=== PATIENT | male | born 2000 | race Caucasian/White ===

== ENCOUNTER 2025-08-01 14:31 | Emergency (ER) | payer OTHER, SELFPAY ==
[2025-08-01] VITALS (8 sets, daily range): BP systolic 123–162; BP diastolic 51–89; PULSE 61–86; RESP 15–25; TEMP 36.4–36.5; O2SAT 95–100; BMI 32.2
--- NOTE | ~2025-08-01 | CT_ITS ---
EXAMINATION: CT CERVICAL SPINE WITHOUT CONTRAST CLINICAL INFORMATION: Injury at work COMPARISON: None available. TECHNIQUE: Axial imaging. Sagittal and coronal reconstructions. This CT examination was performed using dose optimization techniques as appropriate, variously including the following: *Automated exposure control *Adjustment of mA and/or kV according to patient size (this includes techniques or standardized protocols for targeted exams where dose is matched to indication/reason for exam; i.e. extremities or head) *Use of iterative reconstruction technique FINDINGS: There is anatomic alignment of the vertebral bodies and posterior elements. Straightening of the cervical curvature. The atlantoaxial and atlantooccipital articulations are intact. Vertebral body heights are maintained. No evidence of acute fracture or traumatic subluxation. Disc spaces are maintained. The bony central canal is maintained. No prevertebral soft tissue swelling is seen. No suspicious findings are visualized thyroid gland. No suspicious findings in lung apices. CT/CT cervical spine wo IV con IMPRESSION: No CT evidence of acute cervical spine fracture or traumatic malalignment. Fleischner guidelines were followed. Electronically signed by: Earl Kurtz MD 08/01/2025 04:31 PM EDT
--- NOTE | ~2025-08-01 | CT_ITS ---
EXAMINATION: CT HEAD AND FACIAL BONES WITHOUT CONTRAST CLINICAL INFORMATION: Injury to head, face, well working. Struck with branch. COMPARISON: None TECHNIQUE: Contiguous axial imaging was performed from the skull base to vertex, as well as the maxillofacial bones/mandible without intravenous administration of contrast. Multiplanar reformatted imaging was constructed from the axial data set. This CT examination was performed using dose optimization techniques as appropriate, variously including the following: *Automated exposure control *Adjustment of mA and/or kV according to patient size (this includes techniques or standardized protocols for targeted exams where dose is matched to indication/reason for exam; i.e. extremities or head) *Use of iterative reconstruction technique CT HEAD: There is scattered subarachnoid hemorrhage present greater in the left hemisphere. There is a 7 mm left hemispheric subdural hematoma. There is minimal associated gyral flattening and mass effect without significant midline shift or ventricular effacement. There may be a developing subtle left frontal contusive injury. There is no definite additional cerebral edema or contusion. No CT evidence of acute territorial infarct. Ventricles, sulci, and cisterns are normal in size and configuration for patient age. No hydrocephalus. No significant white matter abnormalities. Normal pituitary. Globes and orbital contents image normally. Extracranial soft tissues demonstrate scalp soft tissue swelling and laceration over the vertex, right frontal region, and left temporal region. The calvarium and skull base are intact without fracture. CT MAXILLOFACIAL BONES: The mandible is intact without fracture. The TM joints are normally oriented. The nasal bones, nasal process, maxilla, orbits, zygomatic arches, pterygoid plates, and sphenoid bone are intact without fracture. No significant nasal septal deviation. Paranasal sinuses are normally pneumatized throughout. No paranasal sinus fractures. The mastoids and tympanic cavities are normally aerated. Soft tissues demonstrate left facial soft tissue swelling and induration. No hematoma or fluid collection. There are a few subcutaneous foci of gas in the left temporalis muscle suggesting penetrating injury/laceration. CT/CT facial bones wo IV con IMPRESSION: 1. There is mixed subarachnoid hemorrhage and a 7 mm left hemispheric subdural hematoma. No definite epidural hematoma. There appears to be a subtle developing left frontal lobe contusive injury. There is no midline shift or significant mass effect at this time. 2. No evidence of skull base or calvarial fracture. 3. No evidence of maxillofacial bone fracture. 4. There is scalp soft tissue swelling and laceration involving the right vertex and right frontal region. There is left facial soft tissue swelling and induration. Above findings discussed with Dr. Yates of the [facility] at 4:30 PM, 08/01/2025. Electronically signed by: Ford Maya MD 08/01/2025 04:38 PM EDT
--- NOTE | 2025-08-01 15:41 | ED.HEATRA ---
HPI - Head Injury General Chief complaint: Head Injury Stated complaint: NECK PAIN, STRUCK BY TREE +CORNELIO Time Seen by Provider: 08/01/25 15:12 Source: patient, family (Mother at bedside) and EMS Mode of arrival: EMS Limitations: no limitations History of Present Illness ED Provider: HPI Narrative: 24-year-old male works for [employer], apparently he was walking underneath lala and a branch fell and patient presented with LOC on the scene, he states he is able to recall that he was working underneath the equipment and did see a branch, then he could not really remember what happened, when he came to the manage was telling him that the ambulance is on the way. He is not on blood thinners, reports decreased hearing in the left ear, no visual field changes, paraspinal neck pain, at the time of my evaluation, patient has placed a collar over his chin stating that he can't tolerate it. Related Data Allergies Allergy/AdvReac Type Severity Reaction Status Date / Time No Known Allergies Allergy Verified 08/01/25 15:02 Review of Systems Constitutional: Constitutional: Reports as per [facility] Social History Social History Advance Directives: No Advance Directives Information Provided: Yes Physical Exam Exam: Exam: General: ?Appears of stated age with some facial and scalp bruising ? ?pupils equal reactive bilaterally, there is ecchymosis to the right infraorbital area, there was no blood in the nares, no blood in the ear canals, visual abbott and vision is intact, no tenderness or ecchymosis along the mastoids. I do not appreciate any lacerations as documented in triage at least on initial evaluation, he has right frontotemporal hematoma, there was no obvious dental injury, and examination of the frontal bones without any obvious LeFort ? Neck: No midline tenderness paraspinal tenderness present bilaterally ? ?CV: S1-S2 radial pulses +2 bilaterally ? ?Resp: ?No wheezing rales rhonchi no stridor moving air well, there was no chest wall deformity, no bruising ? Abd: ?Bowel sounds are present, no tenderness no rebound no rigidity, pelvis is stable ? ?MSK: FROM, strength 5/5 all extremities ? Skin: Bruising, abrasion to the forehead ? ?Neuro: ?Alert and oriented x3, moving upper and lower extremities symmetrically, no obvious facial asymmetry noted, cranial nerves 2-12 intact Vital Signs: Vital Signs: Last Vital Signs Temp 97.6 F 08/01/25 14:59 Pulse 70 08/01/25 16:19 Resp 22 H 08/01/25 16:19 BP 125/78 08/01/25 16:19 Pulse Ox 97 08/01/25 16:19 O2 Del Method Room Air 08/01/25 16:19 BMI result Body Mass Index 32.2 Medical Decision Making Medical Decision Making MDM Narrative: 3:46 PM 08/01/2025 (Dr. Behzad Yates): We will obtain imaging of the head and neck area, I was able to clear his collar, he was not really able to tolerate it, and all his pain seems to be very much paraspinal, he has no neurologic deficits, when he moves his neck he has no pain so I we will keep the collar off, traumatic brain injuries highest on my differential, there was no obvious injury to the eye, there was no evidence for a LeFort injuries, and there was no evidence for basilar skull fractures, no evidence for any trauma to the chest abdomen and pelvis his back or extremities Mom is at bedside 4:06 PM 08/01/2025 (Dr. Behzad Yates): On my review patient has traumatic brain injury, I have likely subdural hematoma there maybe a small epidural extension, patient updated, place an IV,Placed pt into [place] collar, and planning for transfer to [facility] 4:20 PM 08/01/2025 (Dr. Behzad Yates): I spoke with Dr. Jensen, he agrees there maybe a small epidural and subdural, patient is going to go to [facility] as a trauma consult Differential Diagnosis Differential Diagnoses: The differential diagnosis associated with the presentation includes (Head injury, neck injury, chest or back injury, eye injury, inner ear injury) Admission/Observation Consideration of admission/observation: Escalation of care including admission/observation considered Consult Healthcare Provider Management of the patient was discussed with: [employer] Driver ([facility] trauma) Lab Data [facility] Lab Attestation statement: I reviewed the patient's lab results. 08/01/25 16:18 08/01/25 16:18 Independent Interpretation I performed an independent interpretation of an: CT Scan (Epidural small, subdural extension) Radiology Impression Discussion of test interpretation with radiology: I have reviewed the radiologist's reading. Independent Historian Clinical information obtained from an independent historian. History obtained from or confirmed by: Parent and EMS Critical Care Time Critical Care Time Critical Care Time: Yes Total Critical Care Time: 60 Attestation: Time is exclusive of separately billable procedures. Time includes: direct patient care, patient reassessment, coordination of patient care, interpretation of data (laboratory data, pulse oximetry, arterial blood gases and chest xrays), review of patient's medical records, medical consultation and documentation of patient care. Procedures excluded from critical care time: central intravenous line placement and electrocardiography. Discharge Plan Discharge Clinical Impression: Traumatic epidural hematoma Qualifiers: Encounter type: initial encounter Loss of consciousness presence/duration: with LOC of 30 min or less Qualified Code(s): S06.4X1A - Epidural hemorrhage with loss of consciousness of 30 minutes or less, initial encounter Traumatic subdural hematoma Qualifiers: Encounter type: initial encounter Loss of consciousness presence/duration: with LOC of 30 min or less Qualified Code(s): S06.5X1A - Traumatic subdural hemorrhage with loss of consciousness of 30 minutes or less, initial encounter Patient Disposition: Xfer Other Transfer Details: [facility] Emergency Department Print Language: Faroese
[2025-08-01 16:23] LABS: MANUAL DIFF FLAG NO
[2025-08-01 16:26] LABS: Hematocrit 48.4 % (42.0-52.0); Hemoglobin 16.4 g/dl (14.0-18.0); Imm Gran Abs Auto 0.08 X10*3/uL (0.00-0.03); Imm Gran Pct Auto 0.4 % (0.0-0.4); Lymphocytes Absolute Auto 1.3 X10*3/uL (1.2-4.9); Mean Corpuscular HGB Conc 33.9 g/dl (31.0-36.0); Mean Corpuscular Hemoglobin 29.5 pg (27.0-33.0); Mean Corpuscular Volume 87.2 fL (80.0-98.0); NRBC Abs Auto 0.000 X10*3/uL (0.0-0.012); NRBC Pct Auto 0.0 /100WBC (0.0-0.2); Platelet Count 293 X10*3/uL (160-400); Red Blood Count 5.55 X10*6/uL (4.60-5.80); White Blood Count 18.8 X10*3/uL (4.8-10.8)
[2025-08-01 16:36] LABS: INTERNATIONAL NORM RATIO 1.1 (0.9-1.1); Prothrombin Time 12.7 SEC (10.9-12.4)
[2025-08-01 16:38] LABS: Partial Thromboplastin Time 27.6 SEC (26.7-34.1)
--- NOTE | 2025-08-01 16:41 | PC.NURSE ---
per MD, pt noted to have a +brain bleed. radiologist reading for scan not read yet. pt placed in [place] collar as he was unable to tolerate c-collar placed by EMS. pt tolerated transition well. pt changed into hospital attire. belongings obtained and provided to family who is bedside. pt positioned upright.. placed on the cardiac cath rn. vss and up to date. pt remains awake/alert/responsive. neuros intact. 20gIV to the left forearm. additional 18gIV placed to the right AC. labs obtained/sent to lab. medication/IVF infusing per provider order. effectiveness pending. on RA w/o difficulty - no sob/wob noted. respirations even/unlabored. pt pending transfer to [facility] at this time. plan of care ongoing. call yoo placed within reach.
[2025-08-01 16:42] LABS: Alanine Aminotransferase 29 U/L (0-40); Albumin Level 4.7 g/dL (3.5-5.0); Alkaline Phosphatase 68 U/L (39-117); Anion Gap 13 (12-20); Aspartate Amino Transferase 33 U/L (5-37); Blood Urea Nitrogen 12 mg/dL (9-16); Calcium 9.2 mg/dL (8.4-10.2); Carbon Dioxide 26 mmol/L (22-29); Chloride 106 mmol/L (96-108); Creatinine Clr Calc Pharmacy 145.0; Estimated Glomerular Filt Rate > 60; Potassium 3.8 mmol/L (3.3-5.1); Sodium 141 mmol/L (135-145); Total Protein 7.5 g/dL (6.5-8.0)
--- NOTE | 2025-08-01 17:26 | PC.NURSE ---
report given to Oz RN in the ED at [facility] at this time. patient leaving BLS per MD order. nothing infusing upon transfer.
--- OUTSIDE RECORDS SUMMARY | 2025-08-01 21:44 | XMS_ITS | Clinical Summary ---
Author Organization [facility] Address [address] [place], [place] [id number] Phone Care Team Providers Care Petrographer Name Role Phone Trey Fuentes MD Primary Care Provider [phone] Allergies No known active allergies Medications acetaminophen-c odeine (TYLENOL-CODEIN E #3) 300-30 mg per tablet Take 1 tablet by mouth every 6 (six) hours as needed. Active ACETAMINOPHEN (TYLENOL ORAL) 1 tab q 6-8 hrs Active Medication-Free Text Melatonin Active lisdexamfetamin e (VYVANSE) 40 MG capsule Take 1 capsule by mouth every morning. Active dextroamphetami ne-amphetamine (ADDERALL XR) 30 MG 24 hr capsule Take 30 mg by mouth. 8 Active Immunizations Immunization Administration Dates Next Due Tdap 05/22/2024 Social History Tobacco Use Types Packs/Day Years Used Date Smoking Tobacco: Never Assessed Education Answer Date Recorded Are you interested in more education? Not on martin e 02/05/2023 Are you concerned about learning? Not on file 02/05/2023 No 02/05/2023 No 02/05/2023 Digital Access Answer Date Recorded No 03/08/2023 No 03/08/2023 No 03/08/2023 Reliable internet access at home? Not on file 03/08/2023 Device with a working camera? Not on file Intimate Partner Violence Answer Date R ecorded Are you denied basic needs s uch as food, clothing, or medical care? No 05/22/2024 In the past 12 months have y ou been in a relationship with a person who hurts, threatens, or tries to control you? No 05/22/2024 Are you denied basic needs s uch as food, clothing, or medical care? No 05/22/2024 In the past 12 months have y ou been in a relationship with a person who hurts, threatens, or tries to control you? No 05/22/2024 Sex and Gender Information Value Date Recorded Sex Assigned at Male 09/24/2019 12:52 AM EST Legal Sex Male 8:45 PM EDT Gender Identity Male 09/24/2019 12:52 AM EST Sexual Orientation Straight 09/24/2019 12 :52 AM EST Last Filed Vital Signs Vital Sign Reading Time Taken Comments Blood Pressure 149/90 05/31/2024 8:56 AM EDT Pulse 90 05/31/2024 8:56 AM EDT Temperature 36.2 C (97.2 F) 05/31/2024 8:56 AM EDT Respiratory Rate 18 05/31/2024 8:56 AM EDT Oxygen Saturation 99% 05/31/2024 8:56 AM EDT Inhaled Oxygen Concentration - - Weight 104.3 kg (230 lb) 05/22/2024 7:06 AM EDT Height 170.2 cm (5' 7 ) 05/22/2024 7:06 AM EDT Body Mass Index 36.02 05/22/2024 7:06 AM EDT Plan of Treatment Health Maintenance Due Date Last Done Comments DEPRESSION SCREENING 2014 SMOKING Hx and SMOKELESS TOBACCO SCREENING 2015 HPV VACCINES (1 - Male 3-dose series) 2017 MENINGOCOCCAL VACCINES (B) (1 of 2 - Standard) 2018 HEPATITIS C SCREENING 2020 HIV ONE-TIME SCREENING (18-65 YEARS) 2020 INFLUENZA VACCINE (#1) 2025 , 07/06/2020, 08/19/2018, Additional history exists COVID-19 VACCINE (3 - 2024- season) 2025 06/29/2021, 06/01/2021 Adult Td,Tdap Booster 05/22/2034 05/22/2024, 013 MENINGOCOCCAL VACCINES (ACWY) Completed 06/14/2020 HEPATITIS A VACCINES Completed 08/06/2021, 06/14/20 20 HIB VACCINES Aged Out No longer eligi ble based on patient's age to complete this topic PNEUMOCOCCAL VACCINES (0-49 years) Aged Out No longer eligible based on patient's age to complete this topic Medical Devices Not on file Insurance [facility] Member Subscriber Plan / Payer (Ef fective 2018-Present) Name:Tonny Andrade Relation to Subscriber:Child Name:EDY ANDRADE Date of :1999 (Home) Address: [id number] [place] [id number] Payer ID:Not on file Type:[facility] Address: [address] [facility] Care Teams Petrographer Relationship Specialty Start Date End Date Trey Fuentes MD [address] [place] [address] [address] [place] [address] [email or web address] PCP - General 10/14/17 Additional Source Comments The information contained in this document represents components of the legal health record. It is not the complete legal health record.[facility]
--- OUTSIDE RECORDS SUMMARY | 2025-08-01 21:44 | XMS_ITS | Encounter Summary ---
Author Organization [facility] Address [address] [place] [address] Phone Care Team Providers Care Heavy Equipment Technician Name Role Phone Trey Fuentes MD Primary Care Provider [phone] Encounter Details Date Type Department Care Team (Late st Contact Info) Description 05/19/2017 Conversion Encounter [facility] - [address], [address] [place] [address] Trey Fuentes MD [address] [place] [address] Social History Tobacco Use Types Packs/Day Years Used Date Smoking Tobacco: Never Assessed Sex and Gender Information Value Date Recorded Sex Assigned at Male 09/18/2024 8:49 PM EST Legal Sex Male 10:15 AM EST Gender Identity Male 09/18/2024 8:49 PM EST Sexual Orientation Choose not to answer 09/27/20 24 12:57 PM EST documented as of this encounter Plan of Treatment Not on file documented as of this encounter Visit Diagnoses Not on filedocumented in this encounter Care Teams Heavy Equipment Technician Relationship Specialty Start Date End Date Trey Fuentes MD [address] [place] [address] PCP - General 12/01/16 documented as of this encounter
--- OUTSIDE RECORDS SUMMARY | 2025-08-01 21:44 | XMS_ITS | Clinical Summary ---
Author Organization [facility] Address [address] [place] [address] Phone Care Team Providers Care Cut Lace Machine Operator Name Role Phone Trey Fuentes MD Primary Care Provider [phone] Allergies No known active allergies Medications No known medications Active Problems Problem Noted Date Diagnosed Date Right wrist injury 10/11/2021 Overview (10/11/2021): Fell on ice 09/2021 -- possible nondisplaced fracture, has ortho follow-up High triglycerides 06/26/2020 Overview (06/26/2020): Noted at 19 year PE TG =226 BMI (body mass index), pediatric, 95-99% for age 0312/20/2017 Assessment & Plan (09/16/2020 3:25 PM EST): Recommend getting regular exercise daily Assessment & Plan (05/03/2020 9:09 AM EDT): Recommend regular exercise daily. Healthy diet discussed Assessment & Plan (03/16/2018 3:44 PM EDT): On better diet. Doing well. Assessment & Plan (12/20/2017 2:59 PM EDT): Discussed diet and exercise Return in 3 months for recheck If BMI still high, will check labs Acne 12/20/2017 Assessment & Plan (01/02/2019 3:08 PM EDT): Continue with OTC benzoyl peroxide wash daily Add tretinoin cream at night Return if not improving Assessment & Plan (03/16/2018 3:47 PM EDT): Will use otc 10% benzoyl peroxide wash Assessment & Plan (12/20/2017 3:00 PM EDT): No squeezing or picking Avoid touching acne Keep phone clean, change pillowcases and towels regularly, keep hair clean and off the face. Wash with mild soap (Dove, Cetaphil) or mild acne cleanser twice a day, using lukewarm water. Moisturize as needed with non-greasy (non comedogenic) unscented lotion or cream. Dry thoroughly before applying medicated creams or gels. Call if not improving in next 2 months and we can offer additional treatment Use benzoyl peroxide 5% wash, gel, lotion, or cream twice daily. Alternative is OTC salicylic acid wash Anxiety 10/31/2016 Overview (08/06/2021): Followed by Dr. Boyce a [facility], started on Lexapro 2015 Dr. Boyce stopped Lexapro 02/2018. Was seeing counselor at [facility] Not seeing therapist in 2019 No current concerns Assessment & Plan (01/02/2019 3:05 PM EDT): Continue follow-up with [facility] Assessment & Plan (03/16/2018 3:43 PM EDT): Doing well off Lexapro. Attention-deficit hyperactiv ity disorder, predominantly hyperactive type 10/21/2015 Overview (08/06/2021): ADHD: on Ritalin LA since at least 2009. Changed to Focalin XR 12/2010, increased to BID dosing 11/2011. Failed trials of Tenex (2010-ineffective), clonidine (2012-ineffective) and Vyvanse (2014-ineffective) Managed by Dr. Boyce at [facility], back to [facility] 04/2020 No longer on medication in 2020 Assessment & Plan (09/16/2020 3:23 PM EST): Does not want to be on medication. Recommend consideration of lower dose or different medication Recommend consideration of therapist at [facility] Recheck in 3 months or as needed Assessment & Plan (06/14/2020 9:49 AM EDT): Recommend continuing on Adderall XR 30 mg for now but consider decrease in the future. Recommend coming in to discuss adjustment further with [facility] in house counselor Assessment & Plan (05/03/2020 9:09 AM EDT): Stable -- continue current dose of Adderall XR Assessment & Plan (01/02/2019 3:05 PM EDT): Continue follow-up with [facility] Assessment & Plan (12/20/2017 3:00 PM EDT): Follow-up with Dr. Boyce Resolved Problems Problem Noted Date Diagnosed Date Resolved Date Sleep disturbance 10/21/2015 08/06/2021 Overview (12/20/2017): Was on high doses of melatonin in past, weaned off Immunizations Immunization Administration Dates Next Due DTaP 09/30/2006, 4,01/31/2003,12/08,2002 H1N1 09/28/2009,08/14/2009 HPV Vaccine 9 Valent 10/21/2015 HPV, Quadrivalent 11/09/2014,09/05/2014 Hep A, Adult 08/06/2021 Hep A, ped/adol 06/14/2020 Hep B, ped/adol 06/18/2003,2002,2002 Hib (PRP-T) 11/16/2003, 3,2002,10/12 IPV 09/30/2006, 4,2002,10/12 Influenza 08/31/2014, 9,11/13/2008,09/29,11/04/2006,09/30/2006 Influenza, injectable, MDCK, preservative free, quadrivalent 08/19/2018 Influenza, injectable, quadr ivalent, preservative free 08/06/2021,07/06/2020,08/23/2019,08/07 Influenza, injectable, trivalent 09/25/2010 Influenza, injectable, triva lent, preservative free 11/11/2017 Influenza, intranasal, quadrivalent 08/22/2013 Influenza, intranasal, trivalent 06/16/2012 MMR 11/16/2003 MMRV 09/30/2006 Meningococcal Conj (Menactra) MCV4P 06/14/2020,1 10/22/2012 Pneumococcal Conjugate 08/08/2003,2002,2002,10/12 Tdap 08/22/2013 Varicella 08/08/2003 Social History Tobacco Use Types Packs/Day Years Used Date Smoking Tobacco: Never Smokeless Tobacco: Never Alcohol Use Standard Drinks/Week Comments No 0 (1 standard drink = 0.6 oz pur e alcohol) Hunger/Food Answer Date Recorded In the last 12 months, did y ou or your family ever eat less than you felt you should because there wasn't enough money for food? No 08/06/2021 Stable Housing Answer Date Recorded Are you worried that in the next 2 months you may not have stable housing? No 08/06/2021 Transportation Concerns Answer Date Rec orded In the last 12 months, have you or your family ever had to go without healthcare because you didn't have a way to get there? No 08/06/2021 Hazards in Home Answer Date Recorded Think about the place you li ve. Do you have problems with any of the following? Pests (mice or roaches), mold, no/not working smoke detectors, water leaks, no window guards. No 2020 Financing Utilities Answer Date Recorde d In the last 12 months, has t he [employer], gas, oil, or water [employer] threatened to shut off your services in your home? No 08/06/2021 Safety at Home Answer Date Recorded Are you or your family worried about feeling saf e in your home? No 08/06/2021 Outside Support Answer Date Recorded Do you feel that you need mo re support from other people or programs to help you care for yourself or your family? No 08/06/2021 Understanding Health Concerns Answer Da te Recorded Do you need help understandi ng your or your child's healthcare needs (diagnosis, medications, plan, etc.)? No 08/06/2021 Financing Health Concerns Answer Date R ecorded In the last 12 months, was t here a time when your child needed to see a doctor or get medications or supplies but could not because of cost? No 08/06/2021 Missing School or Work Answer Date Jama rded Did you or your child miss s chool or work because of a health problem that could have been avoided? No 08/06/2021 Sex and Gender Information Value Date Recorded Sex Assigned at Male 09/18/2024 8:49 PM EST Legal Sex Male 10:15 AM EST Gender Identity Male 09/18/2024 8:49 PM EST Sexual Orientation Choose not to answer 09/27/20 12:57 PM EST Last Filed Vital Signs Vital Sign Reading Time Taken Comments Blood Pressure 128/72 08/06/2021 8:25 AM EDT man ual Pulse 81 08/06/2021 8:25 AM EDT Temperature 36.8 C (98.3 F) 03/16/2018 3:32 PM EDT Respiratory Rate - - Oxygen Saturation - - Inhaled Oxygen Concentration - - Weight 108 kg (237 lb 12.8 oz) 08/06/2021 8:25 A M EDT Height 172.7 cm (5' 8 ) 08/06/2021 8:25 AM EDT Body Mass Index 36.16 08/06/2021 8:25 AM EDT Plan of Treatment Health Maintenance Due Date Last Done Comments Men B Vaccine (1 of 2 - Standard) 2018 Influenza Vaccines (#1) 2025 08/06/20, 07/06/2020, 08/23/2019, Additional history exists COVID-19 Vaccine (4 - 2024-2 6 season) 2025 11/29/2021, 06/29/2021, 06/01/2021 DTaP,Tdap,and Td Vaccines (8 - Td or Tdap) 05/22/2034 05/22/2024, 08/22/2013, 09/30/2006, Additional history exists Hepatitis B Vaccines Completed 06/18/2003, 2002, 2002 Pneumococcal Vaccine Completed 08/08/2003, 01/31/2003, 2002, Additional history exists HIB Vaccines Completed 11/16/2003, 01/10, 2002, Additional history exists IPV Vaccines Completed 09/30/2006, 08/12, 2002, Additional history exists MMR Vaccines Completed 09/30/2006, 11/16/2003 Varicella Vaccines Completed 09/30/2006, 08/08/2003 HPV Vaccines Completed 10/21/2015, 10/13, 09/05/2014 Meningococcal Vaccine Completed 06/14/2020, 013 Hepatitis A Vaccines Completed 08/06/2021, 06/14/20 20 Insurance [facility] NON [facility] Member Subscriber Plan / Payer (Ef fective 2017-Present) Name:Tonny Andrade Relation to Subscriber:Self Name:Raymond Tonny Payer ID:Not on file Group ID:Not on file Type:Medicaid Address: [address] [employer] [facility] NON [facility] [place] [address] Care Teams Cut Lace Machine Operator Relationship Specialty Start Date End Date Trey Fuentes MD [address] [place] [id number] PCP - General 12/01/16
== END 2025-08-01 17:28 | disposition other institution (70) ==
PROVIDERS: Emergency Provider Emergency Medicine
DX: S06.4X1A Epidural hemorrhage with loss of consciousness of 30 minutes or less, initial encounter (principal); S06.5X1A Traumatic subdural hemorrhage with loss of consciousness of 30 minutes or less, initial encounter; S00.81XA Abrasion of other part of head, initial encounter; M54.2 Cervicalgia; R11.0 Nausea; Y29.XXXA Contact with blunt object, undetermined intent, initial encounter; Y93.9 Activity, unspecified; Y92.9 Unspecified place or not applicable; Y99.0 Civilian activity done for income or pay
CPT/HCPCS: 36415; 70450; 70486; 72125; 80053; 85025; 85610; 85730; 96361; 96374; 96375; 99285; J2270; J2405; J3010

== ENCOUNTER → 2025-08-01 15:40 | Outpatient (BNV) | payer OTHER, SELFPAY | PROVIDERS: Emergency Provider Emergency Medicine; Visit Provider Radiology Diagnostic Radiology | DX: S09.90XA Unspecified injury of head, initial encounter (principal); W22.8XXA Striking against or struck by other objects, initial encounter | CPT/HCPCS: 70450; 70486; 72125 ==